=== PATIENT | male | born 1980 | race Caucasian/White ===

== ENCOUNTER → 2018-04-11 16:34 | Outpatient (CLI) | payer OTHER ==
[2012-09-11 17:51] VITALS: BMI 32.2
== END | disposition home or self-care (01) ==
LOC: D.MRI 16:34
DX: M54.16 Radiculopathy, lumbar region (principal)

== ENCOUNTER 2018-08-12 15:15 | Inpatient (IN) | payer OTHER ==
[~2018-08-12] VITALS: Ht 180.3 cm; Wt 101.6 kg
--- NOTE | ~2018-08-12 | MORECARE ---
CASE MANAGEMENT DISCHARGE SUMMARY PATIENT: NORMA BRADSHAW UNIT: [id number] ADM DATE: 08/12/18 AGE: 37 : [birth year] SEX: M ROOM/BED: D.2202 AUTHOR: ROSY CHEUNG PHYSICIAN: REFERRING PHYSICIAN: PERI IRBY MD DATE OF SERVICE: 08/17/18 Discharge Plan Patient Name: NORMA BRADSHAW Facility: [facility]:[place] : 1980 Planned Disposition: Home Anticipated Discharge Date: Discharge Date: Expected LOS: Initial Reviewer: [email or web address] Initial Review Date: 08/12/2018 Generated: 08/17/18 11:24 am Comments DCP- Discharge Planning Updated by [email or web address]: Hannah Jacob on 08/17/18 9:[address] Patient Name: NORMA BRADSHAW Encounter No: [id number] : 1980 Primary Insurance: [employer] PPO Anticipated DC Date: Planned Disposition: Home External Planned Provider: : DCP follow-up note: Patient and family in agreement with discharge plan. No changes to plan. Case management will follow and assist as needed. Hannah Jacob DCP- Discharge Planning Updated by [email or web address]: Hannah Jacob on 08/15/18 11:[address] Patient Name: NORMA BRADSHAW Admission Status: Urgent Accout number: [id number] Admission Date: 08-12-2018 : 1980 Admission Diagnosis: Attending: PERI IRBY Current LOS: 3 Anticipated DC Date: Planned Disposition: Home Primary Insurance: [employer] PPO Discharge Planning Comments: CM met with patient to assess discharge planning needs. Patient stated that he is independent with his care at home and plans to return home with his girlfriend Brenda. His girlfriend will be the one to take him home. He has a walker and a wheelchair at home, but only uses the wheelchair at work. He [place] not think that he will need any other DME or HH at [place]. CM will continue to follow and assist with dc planning as needed. Chief I Dispatcher: Hannah Jacob DCPIA - Discharge Planning Initial Assessment Updated by [email or web address]: Hannah Jacob on 08/15/18 12:09 pm * Is the patient Alert and Oriented? Yes * How many steps to enter\exit or inside your home? * PCP Tim Monroe * Pharmacy [facility] * Preadmission Environment Home with Family * ADLs Independent * Equipment Walker Wheelchair * List name and contact numbers for known caregivers / representatives who currently or will assist patient after discharge: Brenda Elizabeth (girlfriend) [phone] * Verbal permission to speak to the caregivers and representatives has been obtained from the patient. N/A * Community resources currently utilized None * Additional services required to return to the preadmission environment? No * Can the patient safely return to the preadmission environment? Yes * Has this patient been hospitalized within the prior 30 days at any hospital? No Last DP export: 08/15/18 11:16 a Patient Name: NORMA BRADSHAW Page 39642 at 1024 All edits/amendments must be made on the electronic document DICTATION DATE: 08/17/18 1024 SALES REPRESENTATIVE BUSINESS COURSES: SKYLER 08/17/18 1024 RPT#: [id number] DC DATE: STATUS: ADM IN [facility] [address] [place] [address] END OF REPORT
--- NOTE | ~2018-08-12 | MORECARE ---
CASE MANAGEMENT DISCHARGE SUMMARY PATIENT: NORMA BRADSHAW JR UNIT: [id number] ADM DATE: 08/12/18 AGE: 37 : [birth year] SEX: M ROOM/BED: D.2202 AUTHOR: ROSY CHEUNG PHYSICIAN: REFERRING PHYSICIAN: PERI IRBY MD DATE OF SERVICE: 08/15/18 Discharge Plan Patient Name: NORMA BRADSHAW Facility: [facility]:[place] : 1980 Planned Disposition: Home Anticipated Discharge Date: Discharge Date: Expected LOS: Initial Reviewer: [email or web address] Initial Review Date: 08/12/2018 Generated: 08/15/18 1:08 pm Patient Name: NORMA BRADSHAW Page 31451 at 1208 All edits/amendments must be made on the electronic document DICTATION DATE: 08/15/18 120 SHROUD LINE TIER: SKYLER 08/15/18 1208 RPT#: [id number] DC DATE: STATUS: ADM IN [facility] [address] [place] [address] END OF REPORT
--- NOTE | ~2018-08-12 | OP ---
PATIENT NAME: NORMA BRADSHAW JR MEDICAL RECORD: [id number] :[birth year] LOCATION:D.MS [address]2 ADMISSION DATE:08/12/18 SURGEON: PERI IRBY MD DATE OF OPERATION: 08/16/2018 PREOPERATIVE DIAGNOSIS: Right L4-L5 and L5-S1 lumbar spinal stenosis and foraminal stenosis. POSTOPERATIVE DIAGNOSIS: Right L4-L5 and L5-S1 lumbar spinal stenosis and foraminal stenosis. PROCEDURE: Right L4-L5 and L5-S1 lumbar laminotomy, medial facetectomy, and foraminotomy with METRx retractor. SURGEON: Peri Irby MD DESCRIPTION AND TECHNIQUE: After induction of general endotracheal anesthesia, the patient was rolled prone on a David frame. Lumbar spine was prepped and draped in usual sterile fashion. Fluoroscopic x-ray and spinal needle were localized at L4-L5 interspace on the right side. A stab incision was created with #11 blade and series of dilators were used to advance the METRx retractor to the L4-L5 interspace on the right side that was confirmed with fluoroscopic x-ray. A microscope and Midas Noble drill were used to perform laminotomy, medial facetectomy, and foraminotomy at L4-L5 and L5-S1. Hypertrophied ligamentum flavum was removed with Cloward rongeurs. Following this, the L4, L5, and S1 nerve roots were decompressed well. Meticulous hemostasis was maintained throughout the wound. The wound was irrigated with copious amounts of Ancef irrigant solution. The fascia was closed with 2-0 Vicryl suture and the subdermal layer was closed with 3-0 Vicryl suture. The skin was closed with mike. A sterile dressing was applied to the wound. The patient was awakened in good condition and taken to recovery. All counts were reported as correct. TRANSINT:[id number] Voice Confirmation ID: [id number] DOCUMENT ID: [id number] PERI IRBY MD at 1822 CC: [id number] DICTATION DATE: 08/26/18 1315 PERIODONTAL ASSISTANT: 08/26/18 1436 DIS IN 08/17/18 [place] [address] [place] [address]
--- NOTE | ~2018-08-12 | MORECARE ---
CASE MANAGEMENT DISCHARGE SUMMARY PATIENT: NORMA BRADSHAW UNIT: [id number] ADM DATE: 08/12/18 AGE: 37 : [birth year] SEX: M ROOM/BED: D.2202 AUTHOR: ROSY CHEUNG PHYSICIAN: REFERRING PHYSICIAN: PERI IRBY MD DATE OF SERVICE: 08/22/18 Discharge Plan Patient Name: NORMA BRADSHAW Facility: [facility]:[place] : 1980 Planned Disposition: Home Anticipated Discharge Date: Discharge Date: 08/17/2018 Expected LOS: 0 Initial Reviewer: [email or web address] Initial Review Date: 08/12/2018 Generated: 08/22/18 10:22 am Comments DCP- Discharge Planning Updated by [email or web address]: Hannah Jacob on 08/17/18 9:[address] Patient Name: NORMA BRADSHAW Encounter No: [id number] : 1980 Primary Insurance: [employer]IG[employer] PPO Anticipated DC Date: Planned Disposition: Home External Planned Provider: : DCP follow-up note: Patient and family in agreement with discharge plan. No changes to plan. Case management will follow and assist as needed. Hannah Jacob DCP- Discharge Planning Updated by [email or web address]: Hannah Jacob on 08/15/18 11:[address] Patient Name: NORMA BRADSHAW Admission Status: Urgent Accout number: [id number] Admission Date: 08-12-2018 : 1980 Admission Diagnosis: Attending: PERI IRBY Current LOS: 3 Anticipated DC Date: Planned Disposition: Home Primary Insurance: [employer] PPO Discharge Planning Comments: CM met with patient to assess discharge planning needs. Patient stated that he is independent with his care at home and plans to return home with his girlfriend Brenda. His girlfriend will be the one to take him home. He has a walker and a wheelchair at home, but only uses the wheelchair at work. He [place] not think that he will need any other DME or HH at [place]. CM will continue to follow and assist with dc planning as needed. Claims Assistant: Hannah Jacob DCPIA - Discharge Planning Initial Assessment Updated by [email or web address]: Hannah Jacob on 08/15/18 12:09 pm * Is the patient Alert and Oriented? Yes * How many steps to enter\exit or inside your home? * PCP Tim Monroe * Pharmacy [facility] * Preadmission Environment Home with Family * ADLs Independent * Equipment Walker Wheelchair * List name and contact numbers for known caregivers / representatives who currently or will assist patient after discharge: Brenda Elizabeth (girlfriend) [phone] * Verbal permission to speak to the caregivers and representatives has been obtained from the patient. N/A * Community resources currently utilized None * Additional services required to return to the preadmission environment? No * Can the patient safely return to the preadmission environment? Yes * Has this patient been hospitalized within the prior 30 days at any hospital? No Last DP export: 08/17/18 9:24 a Patient Name: NORMA BRADSHAW Page 27702 at 0922 All edits/amendments must be made on the electronic document DICTATION DATE: 08/22/18921 SCALP TREATMENT OPERATOR: SKYLER 08/22/18921 RPT#: [id number] DC DATE:08/17/18 STATUS: DIS IN [facility] [address] [place] [address] END OF REPORT
--- NOTE | ~2018-08-12 | DS ---
PATIENT:NORMA BRADSHAW JR :80 MEDICAL RECORD: [id number] DISCHARGE SUMMARY ADMISSION DATE: 08/12/18 DISCHARGE DATE: 08/17/18 DATE OF ADMISSION: 08/12/2018 DATE OF DISCHARGE: Following Wednesday. HOSPITAL COURSE: The patient was admitted for heparin bridge. He is fully anticoagulated on heparin after cessation of his Coumadin. He underwent a lumbar laminectomy on the following Wednesday. He tolerated the procedure well, had excellent relief of his radicular pain. He was sent home on the following postop day #1 on subcutaneous mini heparin. He is to restart his Coumadin on the day of discharge. He is to follow up with Dr. Irby in 1 week. DIET: Regular. ACTIVITY: Ad chelly. TRANSINT:[id number] Voice Confirmation ID: [id number] DOCUMENT ID: [id number] PERI IRBY MD at 0950 CC: [id number] DICTATION DATE: 09/10/18 1110 POWDER COATER: 09/10/18 2303 DIS IN 08/17/18 [facility] [address] [place] [address]
--- NOTE | ~2018-08-12 | MORECARE ---
CASE MANAGEMENT DISCHARGE SUMMARY PATIENT: NORMA BRADSHAW UNIT: [id number] ADM DATE: 08/12/18 AGE: 37 : [birth year] SEX: M ROOM/BED: D.2202 AUTHOR: JONATANDOC PHYSICIAN: REFERRING PHYSICIAN: PERI IRBY MD DATE OF SERVICE: 08/15/18 Discharge Plan Patient Name: NORMA BRADSHAW Facility: [facility]:[place] : 1980 Planned Disposition: Home Anticipated Discharge Date: Discharge Date: Expected LOS: Initial Reviewer: [email or web address] Initial Review Date: 08/12/2018 Generated: 08/15/18 1:15 pm Comments DCP- Discharge Planning Updated by [email or web address]: Hannah Jacob on 08/15/18 11:[address] Patient Name: NORMA BRADSHAW Admission Status: Urgent Accout number: [id number] Admission Date: 08-12-2018 : 1980 Admission Diagnosis: Attending: PERI IRBY Current LOS: 3 Anticipated DC Date: Planned Disposition: Home Primary Insurance: [employer] PPO Discharge Planning Comments: CM met with patient to assess discharge planning needs. Patient stated that he is independent with his care at home and plans to return home with his girlfriend Brenda. His girlfriend will be the one to take him home. He has a walker and a wheelchair at home, but only uses the wheelchair at work. He [place] not think that he will need any other DME or HH at [place]. CM will continue to follow and assist with dc planning as needed. Saddle And Harness Maker: Hannah Jacob DCPIA - Discharge Planning Initial Assessment Updated by [email or web address]: Hannah Jacob on 08/15/18 12:09 pm * Is the patient Alert and Oriented? Yes * How many steps to enter\exit or inside your home? * PCP Tim Monroe * Pharm[facility] * Preadmission Environment Home with Family * ADLs Independent * Equipment Walker Wheelchair * List name and contact numbers for known caregivers / representatives who currently or will assist patient after discharge: Brenda Elizabeth (girlfriend) [phone] * Verbal permission to speak to the caregivers and representatives has been obtained from the patient. N/A * Community resources currently utilized None * Additional services required to return to the preadmission environment? No * Can the patient safely return to the preadmission environment? Yes * Has this patient been hospitalized within the prior 30 days at any hospital? No Last DP export: 08/15/18 11:08 a Patient Name: NORMA BRADSHAW Page 86215 at 1216 All edits/amendments must be made on the electronic document DICTATION DATE: 08/15/181214 SUGAR TRUCKER: SKYLER 08/15/181214 RPT#: [id number] DC DATE: STATUS: ADM IN [facility] [address] [place] [address] END OF REPORT
[2018-08-12] MEDS ORDERED: COUMADIN5 MG (16:06)
[2018-08-12] MEDS ORDERED: COUMADIN2.5 MG (16:07)
[2018-08-12] MEDS ORDERED: NEURONTIN600 MG PO (16:08)
[2018-08-12] MEDS ORDERED: ZOCOR20 MG PO (16:08)
[2018-08-12] MEDS ORDERED: KLONOPIN0.5 MG PO (16:09)
[2018-08-12] MEDS ORDERED: CELEXA20 MG PO (16:09)
[2018-08-12] MEDS ORDERED: LISINOPRIL5 MG PO (16:10)
[2018-08-12] MEDS ORDERED: OMEPRAZOLE20 M1 PO (16:10)
[2018-08-12] MEDS ORDERED: GLUCOPHAGE500 MG PO (16:11)
[2018-08-12] MEDS ORDERED: ROXICODONE30 MG PO (16:12)
[2018-08-12 18:20] VITALS: BP 126/72; Ht 180.3 cm; Wt 101.6 kg
[2018-08-12 19:35] LABS: HEMATOCRIT 40.1 % (42.0-54.0); HEMOGLOBIN 13.8 g/dL (13.5-17.5); MCH 32.2 pg (26.0-34.0); MCHC 34.4 g/dL (31.0-37.0); MCV 93.5 fL (80.0-100.0); MEAN PLATELET VOLUME 10.8 fL (7.4-10.4); RBC 4.29 10x6/uL (4.20-6.10); RDW 12.4 % (11.5-14.5); WBC 11.1 10x3/uL (4.8-10.8)
[2018-08-12 19:47] LABS: INR 2.19 (0.85-1.17); PROTIME 23.8 SECONDS (11.6-15.0)
[2018-08-12 19:48] LABS: APTT 56.9 SECONDS (22.8-39.4)
[2018-08-12 21:18] VITALS: BP 123/60
[2018-08-13 02:43] LABS: HEMATOCRIT 41.3 % (42.0-54.0); HEMOGLOBIN 14.1 g/dL (13.5-17.5); MCH 32.2 pg (26.0-34.0); MCHC 34.1 g/dL (31.0-37.0); MCV 94.3 fL (80.0-100.0); MEAN PLATELET VOLUME 10.8 fL (7.4-10.4); RBC 4.38 10x6/uL (4.20-6.10); RDW 12.2 % (11.5-14.5); WBC 10.4 10x3/uL (4.8-10.8)
[2018-08-13 04:29] VITALS: BP 118/66
[2018-08-13 09:17] VITALS: BP 122/67
[2018-08-13 12:43] VITALS: BP 127/50
[2018-08-13 16:55] LABS: HEMATOCRIT 43.6 % (42.0-54.0); HEMOGLOBIN 14.7 g/dL (13.5-17.5); MCH 32.1 pg (26.0-34.0); MCHC 33.7 g/dL (31.0-37.0); MCV 95.2 fL (80.0-100.0); MEAN PLATELET VOLUME 10.8 fL (7.4-10.4); RBC 4.58 10x6/uL (4.20-6.10); RDW 12.3 % (11.5-14.5); WBC 9.2 10x3/uL (4.8-10.8)
[2018-08-13 17:00] VITALS: BP 127/71
[2018-08-13 17:04] LABS: APTT 33.6 SECONDS (22.8-39.4)
[2018-08-13 17:05] LABS: INR 1.5 (0.85-1.17); PROTIME 17.6 SECONDS (11.6-15.0)
[2018-08-13 20:43] VITALS: BP 127/66
[2018-08-14 00:44] VITALS: BP 138/78
[2018-08-14 04:00] VITALS: BP 144/78
[2018-08-14 06:06] LABS: HEMATOCRIT 43.2 % (42.0-54.0); HEMOGLOBIN 14.5 g/dL (13.5-17.5); MCH 32.1 pg (26.0-34.0); MCHC 33.6 g/dL (31.0-37.0); MCV 95.6 fL (80.0-100.0); MEAN PLATELET VOLUME 11.4 fL (7.4-10.4); RBC 4.52 10x6/uL (4.20-6.10); RDW 12.3 % (11.5-14.5); WBC 8.1 10x3/uL (4.8-10.8)
[2018-08-14 08:17] VITALS: BP 121/73
[2018-08-14 11:56] VITALS: BP 112/67
[2018-08-14 16:00] LABS: BASOPHILS 0.9 % (0-2); EOSINOPHILS 8.3 % (0-7); HEMATOCRIT 41.4 % (42.0-54.0); HEMOGLOBIN 14.1 g/dL (13.5-17.5); IMMATURE GRANULOCYTES 0.3 % (0-5); LYMPHOCYTES 21.9 % (15-50); MCHC 34.1 g/dL (31.0-37.0); MCV 93.9 fL (80.0-100.0); MEAN PLATELET VOLUME 11.1 fL (7.4-10.4); MONOCYTES 11.2 % (2-11); NEUTROPHILS 57.4 % (40-80); PLATELET COUNT 208 10x3/uL (130-400); RBC 4.41 10x6/uL (4.20-6.10); RDW 12.3 % (11.5-14.5); WBC 9.3 10x3/uL (4.8-10.8)
[2018-08-14 16:07] VITALS: BP 119/68
[2018-08-14 16:21] LABS: ALBUMIN 3.4 g/dL (3.4-5.0); ALKALINE PHOSPHATASE 96 U/L (46-116); CALC OSMOLALITY 279 mosm/kg (275-300); CALCIUM 8.7 mg/dL (8.5-10.1); CARBON DIOXIDE 28.6 mmol/L (21.0-32.0); CHLORIDE - SERUM 103 mmol/L (98-107); CREATININE - SERUM 0.2 mg/dL (0.6-1.3); GLUCOSE 130 mg/dL (74-106); PROTEIN - SERUM 6.6 g/dL (6.4-8.2); SODIUM 141 mmol/L (136-145); UREA NITROGEN 4 mg/dL (7-18); eGFR NON AFRICAN AMERICAN > 90 mL/min (90-120)
[2018-08-14 16:27] LABS: ALT (SGPT) 4 U/L (10-68)
[2018-08-14 20:00] VITALS: BP 129/64
[2018-08-15 05:24] VITALS: BP 137/66
[2018-08-15 06:40] LABS: BASOPHILS 0.6 % (0-2); EOSINOPHILS 7.6 % (0-7); HEMATOCRIT 43.1 % (42.0-54.0); HEMOGLOBIN 14.2 g/dL (13.5-17.5); IMMATURE GRANULOCYTES 0.1 % (0-5); LYMPHOCYTES 20.5 % (15-50); MCH 31.3 pg (26.0-34.0); MCHC 32.9 g/dL (31.0-37.0); MCV 95.1 fL (80.0-100.0); MEAN PLATELET VOLUME 11.1 fL (7.4-10.4); NEUTROPHILS 63.2 % (40-80); PLATELET COUNT 209 10x3/uL (130-400); RBC 4.53 10x6/uL (4.20-6.10); RDW 12.3 % (11.5-14.5); WBC 9.3 10x3/uL (4.8-10.8)
[2018-08-15 06:44] LABS: APTT 44.5 SECONDS (22.8-39.4)
[2018-08-15 06:46] LABS: INR 1.06 (0.85-1.17); PROTIME 13.4 SECONDS (11.6-15.0)
[2018-08-15 07:00] LABS: ALBUMIN 3.2 g/dL (3.4-5.0); ALKALINE PHOSPHATASE 98 U/L (46-116); BILIRUBIN - TOTAL 0.18 mg/dL (0.2-1.3); CALCIUM 8.9 mg/dL (8.5-10.1); CARBON DIOXIDE 31.1 mmol/L (21.0-32.0); CHLORIDE - SERUM 101 mmol/L (98-107); PROTEIN - SERUM 6.9 g/dL (6.4-8.2); SODIUM 137 mmol/L (136-145); UREA NITROGEN 5 mg/dL (7-18)
[2018-08-15 07:02] LABS: ALT (SGPT) 33 U/L (10-68); CALC OSMOLALITY 275 mosm/kg (275-300); CREATININE - SERUM 0.9 mg/dL (0.6-1.3); GLUCOSE 197 mg/dL (74-106); eGFR NON AFRICAN AMERICAN > 90 mL/min (90-120)
[2018-08-15 08:12] VITALS: BP 102/72
[2018-08-15 13:04] VITALS: BP 115/70
[2018-08-15 16:33] VITALS: BP 127/74
[2018-08-15 20:00] VITALS: BP 107/71
[2018-08-16] VITALS: BP 124/69
[2018-08-16 04:00] VITALS: BP 128/76
[2018-08-16 06:13] LABS: BASOPHILS 0.7 % (0-2); EOSINOPHILS 8.9 % (0-7); HEMATOCRIT 43.4 % (42.0-54.0); HEMOGLOBIN 14.6 g/dL (13.5-17.5); IMMATURE GRANULOCYTES 0.3 % (0-5); LYMPHOCYTES 21.2 % (15-50); MCH 31.8 pg (26.0-34.0); MCHC 33.6 g/dL (31.0-37.0); MCV 94.6 fL (80.0-100.0); MEAN PLATELET VOLUME 11.6 fL (7.4-10.4); NEUTROPHILS 54.9 % (40-80); PLATELET COUNT 206 10x3/uL (130-400); RBC 4.59 10x6/uL (4.20-6.10); RDW 12.3 % (11.5-14.5); WBC 8.6 10x3/uL (4.8-10.8)
[2018-08-16 06:30] LABS: PROTIME 12.8 SECONDS (11.6-15.0)
[2018-08-16 06:49] LABS: ALBUMIN 3.3 g/dL (3.4-5.0); ALKALINE PHOSPHATASE 100 U/L (46-116); ALT (SGPT) 38 U/L (10-68); BILIRUBIN - TOTAL 0.27 mg/dL (0.2-1.3); CALC OSMOLALITY 276 mosm/kg (275-300); CALCIUM 9.1 mg/dL (8.5-10.1); CARBON DIOXIDE 32.1 mmol/L (21.0-32.0); CHLORIDE - SERUM 103 mmol/L (98-107); CREATININE - SERUM 0.8 mg/dL (0.6-1.3); POTASSIUM - SERUM 4.3 mmol/L (3.5-5.1); PROTEIN - SERUM 6.7 g/dL (6.4-8.2); SODIUM 141 mmol/L (136-145); UREA NITROGEN 5 mg/dL (7-18); eGFR NON AFRICAN AMERICAN > 90 mL/min (90-120)
[2018-08-16 06:50] LABS: APTT 29.1 SECONDS (22.8-39.4); GLUCOSE 86 mg/dL (74-106)
[2018-08-16 10:50] VITALS: BP 138/89
[2018-08-16 20:41] VITALS: BP 136/68
[2018-08-17 04:52] VITALS: BP 141/75
[2018-08-17 05:46] LABS: APTT 31.3 SECONDS (22.8-39.4); INR 1.05 (0.85-1.17); PROTIME 13.3 SECONDS (11.6-15.0)
[2018-08-17 05:59] LABS: CALCIUM 9.7 mg/dL (8.5-10.1); CARBON DIOXIDE 28.7 mmol/L (21.0-32.0); CHLORIDE - SERUM 99 mmol/L (98-107); CREATININE - SERUM 0.8 mg/dL (0.6-1.3); POTASSIUM - SERUM 4.3 mmol/L (3.5-5.1); SODIUM 137 mmol/L (136-145); eGFR NON AFRICAN AMERICAN > 90 mL/min (90-120)
[2018-08-17 06:01] LABS: CALC OSMOLALITY 273 mosm/kg (275-300); GLUCOSE 135 mg/dL (74-106); UREA NITROGEN 8 mg/dL (7-18)
[2018-08-17 06:02] LABS: HEMATOCRIT 42.8 % (42.0-54.0); HEMOGLOBIN 14.5 g/dL (13.5-17.5); MCH 31.9 pg (26.0-34.0); MCHC 33.9 g/dL (31.0-37.0); MCV 94.1 fL (80.0-100.0); MEAN PLATELET VOLUME 11.6 fL (7.4-10.4); PLATELET COUNT 231 10x3/uL (130-400); RBC 4.55 10x6/uL (4.20-6.10); RDW 12.3 % (11.5-14.5); WBC 20.4 10x3/uL (4.8-10.8)
[2018-08-17 07:04] LABS: LYMPHOCYTES 10 % (15-50); MONOCYTES 7 % (2-11); NEUTROPHILS 79 % (40-80); PLATELET ESTIMATE NORMAL; ROULEAUX OCC
[2018-08-17] MEDS ORDERED: LOVENOX40 MG/0.4 SC (08:39)
[2018-08-17 09:06] VITALS: BP 142/78
== END 2018-08-17 11:00 | disposition home or self-care (01) | DRG 516 ==
LOC: D.MS 15:15 → D.SDCHOLD 08-15 11:04 → D.MS 08-15 11:07
PROVIDERS: Family Medicine; Internal Medicine Nephrology; Neurological Surgery
PROC: 01NB0ZZ Release Lumbar Nerve, Open Approach (ICD-10-PCS; principal; 2018-08-16 07:30)
DX: M54.16 Radiculopathy, lumbar region (principal); D68.59 Other primary thrombophilia; I10 Essential (primary) hypertension; E11.40 Type 2 diabetes mellitus with diabetic neuropathy, unspecified; E11.65 Type 2 diabetes mellitus with hyperglycemia; Z79.01 Long term (current) use of anticoagulants; E78.5 Hyperlipidemia, unspecified; F41.8 Other specified anxiety disorders; K21.9 Gastro-esophageal reflux disease without esophagitis; Z87.891 Personal history of nicotine dependence